=== PATIENT | male | born 1975 | race Caucasian/White ===

== ENCOUNTER 2018-05-11 10:09 | Inpatient (IN) | payer OTHER ==
[2018-05-11] MEDS: IPRATROPIUM (NEB) 0.5 MG/2.5 ML AMP NEB ×2 (10:31→13:06)
[2018-05-11] MEDS: ALBUTEROL 0.083% (NEB) 2.5 MG/3 ML AMP NEB ×2 (10:32→13:06)
[2018-05-11] MEDS: SOD CHLORIDE 0.9% 500 ML IV (11:07)
[2018-05-11] MEDS: DEXAMETHASONE 10 MG/ML 1 ML INJ IV (11:07)
[2018-05-11 11:31] LABS: ADD MAN DIFF? NO
[2018-05-11 11:34] LABS: BASOPHILS % 0.2 % (0.0-2.0); EOSINOPHILS % 0.1 % (0.0-7.0); HEMATOCRIT 45.6 % (42.0-52.0); LYMPHOCYTES # 2.4 10^3/ul (0.8-2.9); LYMPHOCYTES % 16.5 % (15.0-51.0); MEAN CORPUSCULAR HEMOGLOBIN 30.4 pg (29.0-33.0); MEAN CORPUSCULAR HGB CONC 32.9 g/dl (32.0-37.0); MEAN CORPUSCULAR VOLUME 92.3 fl (82.0-101.0); MEAN PLATELET VOLUME 9.3 fl (7.4-10.4); MONOCYTE # 1.1 10^3/ul (0.3-0.9); MONOCYTES % 7.2 % (0.0-11.0); NEUTROPHIL # 11.1 10^3/ul (1.6-7.5); NEUTROPHILS % 75.7 % (39.0-77.0); PLATELET COUNT 376 10^3/UL (140-415); RED BLOOD COUNT 4.94 10^6/ul (4.70-6.10); RED CELL DISTRIBUTION WIDTH 13.5 % (11.5-14.5)
[2018-05-11 11:34] LABS: WHITE BLOOD COUNT 14.7 10^3/ul (4.8-10.8)
[2018-05-11] MEDS: ALBUTEROL 0.083% (NEB) 2.5 MG/3 ML AMP HHN ×3 (11:45→20:38)
[2018-05-11] MEDS: IPRATROPIUM (NEB) 0.5 MG/2.5 ML AMP HHN (11:45)
[2018-05-11 11:55] LABS: ANION GAP 14 (5-13); BLOOD UREA NITROGEN 14 mg/dl (7-20); CALCIUM 9.5 mg/dl (8.4-10.2); CARBON DIOXIDE 30 mmol/L (21-31); CHLORIDE 104 mmol/L (97-110); CREATININE 0.73 mg/dl (0.61-1.24); Estimated GFR > 60 mL/min (>60); GLUCOSE 91 mg/dl (70-220); POTASSIUM 4.3 mmol/L (3.5-5.1); SODIUM 148 mmol/L (135-144)
[2018-05-11 12:06] LABS: TROPONIN-I < 0.012 ng/ml (0.000-0.120)
[2018-05-11] MEDS: MAGNESIUM SULFATE 2 GM/50 ML 50 ML IVPB (13:46)
[2018-05-11] MEDS ORDERED: KETOROLAC 30 MG INJ IV (15:00)
[2018-05-11] MEDS ORDERED: ONDANSETRON 4 MG INJ IV ×2 (15:00→16:00)
[2018-05-11] MEDS ORDERED: ACETAMINOPHEN 325 MG TAB PO ×2 (15:00→16:00)
[2018-05-11] MEDS: SOD CHLORIDE 0.9% 1,000 ML IV (15:25)
[2018-05-11] MEDS: SOD CHLORIDE 0.9% 100 ML (15:26)
[2018-05-11] MEDS: IOHEXOL 100 ML (15:26)
[2018-05-11] MEDS ORDERED: DOCUSATE SODIUM 100 MG CAP PO (16:00)
[2018-05-11] MEDS ORDERED: NACL 0.9% 3 ML SYG IV (16:00)
[2018-05-11] MEDS ORDERED: MAGNESIUM HYDROXIDE 30ML CUP PO (16:00)
[2018-05-11] MEDS ORDERED: ALBUTEROL 0.083% (NEB) 2.5 MG/3 ML AMP HHN (16:00)
[2018-05-11] MEDS ORDERED: ZOLPIDEM 5 MG TAB PO (16:00)
[2018-05-11] MEDS ORDERED: BISACODYL 10 MG SUPP PR (16:00)
[2018-05-11] MEDS ORDERED: hydrALAzine 20 MG INJ IV (17:00)
[2018-05-11] MEDS: LEVOFLOXACIN 750 MG TABLET PO (17:24)
[2018-05-11] MEDS: METHYLPREDNISOLONE 125 MG INJ IV (17:25)
[2018-05-11] MEDS: HYDROCODONE/APAP (5/325) TAB PO (17:31)
[2018-05-11] MEDS: MONTELUKAST 10 MG TAB PO (20:29)
[2018-05-11] MEDS: FAMOTIDINE 20 MG TAB PO (20:29)
[2018-05-12] MEDS: METHYLPREDNISOLONE 125 MG INJ IV ×5 (00:22→23:47)
[2018-05-12] MEDS: ALBUTEROL 0.083% (NEB) 2.5 MG/3 ML AMP HHN ×6 (01:15→21:11)
[2018-05-12] MEDS: SOD CHLORIDE 0.9% 1,000 ML IV (02:45)
[2018-05-12 06:10] LABS: ADD MAN DIFF? NO
[2018-05-12 06:23] LABS: BASOPHILS % 0.2 % (0.0-2.0); HEMATOCRIT 41.9 % (42.0-52.0); HEMOGLOBIN 13.6 g/dl (14.0-18.0); LYMPHOCYTES # 1.4 10^3/ul (0.8-2.9); LYMPHOCYTES % 11.7 % (15.0-51.0); MEAN CORPUSCULAR HEMOGLOBIN 30.2 pg (29.0-33.0); MEAN CORPUSCULAR HGB CONC 32.5 g/dl (32.0-37.0); MEAN CORPUSCULAR VOLUME 92.9 fl (82.0-101.0); MEAN PLATELET VOLUME 9.6 fl (7.4-10.4); MONOCYTE # 0.3 10^3/ul (0.3-0.9); MONOCYTES % 2.2 % (0.0-11.0); NEUTROPHIL # 10.5 10^3/ul (1.6-7.5); NEUTROPHILS % 85.6 % (39.0-77.0); PLATELET COUNT 388 10^3/UL (140-415); RED BLOOD COUNT 4.51 10^6/ul (4.70-6.10); RED CELL DISTRIBUTION WIDTH 13.1 % (11.5-14.5)
[2018-05-12 06:23] LABS: WHITE BLOOD COUNT 12.2 10^3/ul (4.8-10.8)
[2018-05-12 06:37] LABS: ANION GAP 11 (5-13); BLOOD UREA NITROGEN 14 mg/dl (7-20); CALCIUM 9.2 mg/dl (8.4-10.2); CARBON DIOXIDE 27 mmol/L (21-31); CHLORIDE 105 mmol/L (97-110); CREATININE 0.64 mg/dl (0.61-1.24); Estimated GFR > 60 mL/min (>60); GLUCOSE 126 mg/dl (70-220); MAGNESIUM 2.5 mg/dl (1.7-2.5); POTASSIUM 4.7 mmol/L (3.5-5.1); SODIUM 143 mmol/L (135-144)
[2018-05-12] MEDS: AMLODIPINE 5 MG TAB PO (09:00)
[2018-05-12] MEDS: FAMOTIDINE 20 MG TAB PO ×2 (09:36→21:06)
[2018-05-12] MEDS: ESCITALOPRAM 10 MG TAB PO (09:36)
[2018-05-12] MEDS: FLUTICASONE/VILANTEROL 200-25 INH DEVICE INH (09:36)
[2018-05-12] MEDS: ENOXAPARIN 40 MG/0.4 ML SYG SC (09:40)
[2018-05-12] MEDS: GUAIFENESIN 20 MG/ML 5ML CUP PO ×2 (13:19→21:05)
[2018-05-12] MEDS: LEVOFLOXACIN 750 MG TABLET PO (18:20)
[2018-05-12] MEDS: MONTELUKAST 10 MG TAB PO (21:06)
[2018-05-13] MEDS: ALBUTEROL 0.083% (NEB) 2.5 MG/3 ML AMP HHN ×5 (01:25→23:47)
[2018-05-13] MEDS: METHYLPREDNISOLONE 125 MG INJ IV (05:33)
[2018-05-13] MEDS: ESCITALOPRAM 10 MG TAB PO (09:52)
[2018-05-13] MEDS: FAMOTIDINE 20 MG TAB PO ×2 (09:52→20:08)
[2018-05-13] MEDS: AMLODIPINE 5 MG TAB PO (09:53)
[2018-05-13] MEDS: FLUTICASONE/VILANTEROL 200-25 INH DEVICE INH (09:53)
[2018-05-13] MEDS: ENOXAPARIN 40 MG/0.4 ML SYG SC (10:00)
[2018-05-13] MEDS ORDERED: ALBUTEROL 0.083% (NEB) 2.5 MG/3 ML AMP HHN (10:00)
[2018-05-13] MEDS: predniSONE 20 MG TAB PO (13:16)
[2018-05-13] MEDS: GUAIFENESIN 20 MG/ML 5ML CUP PO (16:02)
[2018-05-13] MEDS: LEVOFLOXACIN 750 MG TABLET PO (16:04)
[2018-05-13] MEDS: MONTELUKAST 10 MG TAB PO (20:08)
[2018-05-14] MEDS: ALBUTEROL 0.083% (NEB) 2.5 MG/3 ML AMP HHN (07:57)
[2018-05-14] MEDS: predniSONE 20 MG TAB PO (09:11)
[2018-05-14] MEDS: AMLODIPINE 5 MG TAB PO (09:11)
[2018-05-14] MEDS: FAMOTIDINE 20 MG TAB PO (09:11)
[2018-05-14] MEDS: ESCITALOPRAM 10 MG TAB PO (09:11)
[2018-05-14] MEDS: ENOXAPARIN 40 MG/0.4 ML SYG SC (09:19)
[2018-05-14] MEDS: FLUTICASONE/VILANTEROL 200-25 INH DEVICE INH (09:44)
== END 2018-05-14 11:55 | disposition home or self-care (01) | DRG 202 ==
LOC: FTE 10:09 → 2NE 14:54
DX: J45.901 Unspecified asthma with (acute) exacerbation (principal); J12.9 Viral pneumonia, unspecified; Z68.43 Body mass index [BMI] 50.0-59.9, adult; J20.8 Acute bronchitis due to other specified organisms; E66.01 Morbid (severe) obesity due to excess calories; Z71.3 Dietary counseling and surveillance; F32.9 Major depressive disorder, single episode, unspecified; I10 Essential (primary) hypertension; G47.33 Obstructive sleep apnea (adult) (pediatric)
CPT/HCPCS: 71045; 71275; 80048; 83735; 84484; 85025; 87400; 90686; 93005; 94640; 94660; 94664; 96374; 96375; 99285-25